=== PATIENT | male | born 1985 | race Caucasian/White ===

== ENCOUNTER 2016-09-19 08:37 | Emergency (ER) | payer OTHER ==
[~2016-09-19] VITALS: Ht 182.9 cm; Wt 104.3 kg
[2016-09-19 08:44] VITALS: BP 159/90
--- NOTE | 2016-09-19 08:52 | ED SKIN/ALLERGY COMPLAINT ---
History of Present Illness General Chief Complaint: Allergy Symptoms Stated Complaint: "I HAVE A RASH SINCE TUESDAY" Source: patient, old records Exam Limitations: no limitations Vital Signs & Intake/Output Vital Signs & Intake/Output Vital Signs Date Time Temp Pulse Resp B/P Pulse O2 O2 Flow FiO2 Ox Delivery Rate 09/19 0844 96.9 88 20 159/90 99 Room Air Room Air Allergies Coded Allergies: No Known Allergies (09/19/16) Reconcile Medications Hydroxyzine HCl 50 MG TABLET 1 TAB PO TID PRN ITCHING Prednisone 20 MG TABLET 1 TAB PO TID STEROID (Reported) Triage Note: PT TO ED WITH C/O RASH TO ARMS, BEHIND KNEES, UNKNOWN ALLERGY, WENT TO WALK IN ON TUESDAY NIGHT AND GIVEN PREDNISONE 25MG TID, STILL ON THE MEDS. TO ED FOR CONTINUING C/O RASH, AND ITCH. Triage Nurses Notes Reviewed? yes Onset: Abrupt Duration: day(s): (3), constant Timing: recent history Severity: mild, moderate Severity Numbers: 5 Location: generalized Possible Factors: no cause identified No Modifying Factors: none Associated Symptoms: pruritus HPI: 31 Year old male with no medical history presents to the ER for evaluation today complaining of a pruritic rash to his extermties and chest for the past 3 days.he was seen at an urgent care when the symptoms began and was prescribed prednisone 30mg tid however states rash persists and is extremely itchy. no known tick or insect bites, no fever or chills. pt denies history of exposure to any known allergen. no histoyr of similar sx, or sick contacts, no difficulty swallowing/breathing, sore throat, rhinorrhea. 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 The cat is up-to-date on its shots he denies any rash after the scratches no fevers chills or pain (MARY ANN HURLEY,NICK) Past History Travel History Traveled to [place] past 21 day No Medical History Any Pertinent Medical History? see below for history Neurological: NONE EENT: allergies Cardiovascular: NONE Respiratory: NONE Gastrointestinal: NONE Hepatic: NONE Renal: NONE Musculoskeletal: NONE Psychiatric: NONE Endocrine: NONE Blood Disorders: NONE Cancer(s): NONE SALES AND MARKETING ADMINISTRATOR/Reproductive: NONE Surgical History Surgical History: none Psychosocial History What is your primary language Vietnamese Tobacco Use: Never used ETOH Use: occasional use Illicit Drug Use: denies illicit drug use Family History Hx Contributory? No (NICK BOURNE) Review of Systems Review of Systems Constitutional: Reports: see HPI. All Other Systems: Reviewed and Negative Comments Review of systems: See HPI, All other systems negative. Constitutional, no chills no fever, no malaise HEENT: No visual changes no sore throat no congestion Cardiovascular: No chest pain , no palpitation Skin, see hpi Respiratory: No dyspnea no cough no sputum GI: No nausea no vomiting, no diarrhea, : No dysuria Muscle skeletal: No joint pain, no joint swelling, no back pain, no neck pain, Neurologic: no headache Psych: No stress Heme/endocrine: No bruising no bleeding Immunology: No lymphadenopathy (NICK BOURNE) Physical Exam Physical Exam General Appearance: well developed/nourished, no apparent distress, alert, awake Comments: Well-developed well-nourished patient in no apparent distress. HEENT: Atraumatic, extraocular motion intact, pharynx wnl Neck: Supple, FROM, no lymphadenopathy Back: FROM Cardiovascular: Regular rate and rhythms no murmurs rubs or gallops, Respiratory: No respiratory distress. Patient speaking in full complete sentences. Breath sounds clear to auscultation bilaterally: NO W/R/R Extremities: full range of motion Neuro: Alert and oriented x3 Skin: Warm & dry; macular papular rash noted to the upper extremities and abdomen and lower back, no rash noted to the face no facial swelling or angioedema Psych: Mood affect normal, normal memory normal judgment. (NICK BOURNE) Progress Differential Diagnosis: abscess/cellulitis, allergic reaction, anaphylaxis, angioedema, asthma, contact dermatitis, drug reaction, urticaria Plan of Care: Current Medications Sig/Jacey Start time Last Medication Dose Stop Time Status Admin Dexamethasone 4 MG ONCE ONE 09/19 929 UNVr (Decadron) 09/19 930 I advised the patient continue with taking the prednisone as directed he was medicated with Decadron here [facility] for hydroxyzine provided advised close follow up with his primary care physician in 48 hours he feels comfortable this plan (NICK BOURNE) Departure Departure Time of Disposition: 916 Disposition: HOME OR SELF CARE Condition: Stable Clinical Impression Primary Impression: Contact dermatitis Referrals: VIC SANTILLAN,ROSALINA Zuluaga (PCP/Family) Additional Instructions: follow up with dr brooks this week. continue taking prednisone as directed. hydroxyzine for itching. this was sent to [facility]. Departure Forms: Customer Survey General Discharge Information Prescriptions: Current Visit Scripts Hydroxyzine HCl 1 TAB PO TID PRN ITCHING #30 TAB (MARY ANN HURLEY,NICK) PA/[employer] Co-Sign Statement Statement: ED Attending supervision documentation- [] I saw and evaluated the patient. I have also reviewed all the pertinent lab results and diagnostic results. I agree with the findings and the plan of care as documented in the PA's/[employer]'s documentation. x I have reviewed the ED Record and agree with the PA's/[employer]'s documentation. [] Additions or exceptions (if any) to the PAs/[employer]'s note and plan are summarized below: [] (VA SANTILLAN,LETTY)
[2016-09-19] MEDS ORDERED: PREDNISONE20 M1 PO (09:00)
[2016-09-19] MEDS ORDERED: HYDROXYZINE HCL50 M1 PO (09:19)
== END 2016-09-19 09:24 ==
LOC: ERH 08:37
DX: L25.9 Unspecified contact dermatitis, unspecified cause (principal)
CPT/HCPCS: 96372; J1100